=== PATIENT | male | born 1960 | race Caucasian/White ===

== ENCOUNTER 2016-04-23 10:04 | Emergency (ER) | payer MEDICAID ==
[2016-04-23 10:14] VITALS: PULSE 54; TEMP 97.9
[2016-04-23] MEDS ORDERED: NS 1,000 ML IV ONE (10:35)
--- NOTE | 2016-04-23 10:42 | EDPHY ---
H & P Stated Complaint: 2 months bilat abd and groin pain/has abd mesh from hernia surgery Time Seen by Provider: 04/23/16 10:24 HPI/ROS: CHIEF COMPLAINT: Suprapubic and inguinal pain HISTORY OF PRESENT ILLNESS: The patient is a 56-year-old man who comes to the emergency department complaining of bilateral inguinal and suprapubic pain. No testicular pain. Pain does radiate down to his medial thighs. It has been hurting for about 2 months. He states that at 1st he thought he pulled a groin but it is not getting better. He has not had a fever. It is not worsened by palpation. It is worsened by lifting his legs up such as when he walks up the stairs or rides his bicycle. Also when lifting heavy things. He has not noticed any bulges. He has a history of umbilical hernia repair with mesh in 2004. No other abdominal surgeries. Normal bowel movements that are pain free. He states that his urine has turned from a stream to a spray over the last few days. No history of kidney stones or bladder stones. No hematuria. No dysuria. No history of prostate abnormalities. No sexual promiscuity. He states that his pain is only mild but is now constant. REVIEW OF SYSTEMS: Constitutional: denies: chills, fever, recent illness, recent injury EENTM: denies: blurred vision, double vision, nose congestion Respiratory: denies: cough, shortness of breath Cardiac: denies: chest pain, irregular heart rate, lightheadedness, palpitations Gastrointestinal/Abdominal: denies: abdominal pain, diarrhea, nausea, vomiting, blood streaked stools Genitourinary: See HPI Musculoskeletal: denies: joint pain, muscle pain Skin: denies: lesions, rash, jaundice, bruising Neurological: denies: headache, numbness, paresthesia, tingling, dizziness, weakness Hematologic/Lymphatic: denies: blood clots, easy bleeding, easy bruising Immunologic/allergic: denies: HIV/AIDS, transplant EXAM: GENERAL: Well-appearing, well-nourished and in no acute distress. HEAD: Atraumatic, normocephalic. EYES: Pupils equal round and reactive to light, extraocular movements intact, sclera anicteric, conjunctiva are normal. ENT: TMs normal, nares patent, oropharynx clear without exudates. Moist mucous membranes. NECK: Normal range of motion, supple without lymphadenopathy or JVD. LUNGS: Breath sounds clear to auscultation bilaterally and equal. No wheezes rales or rhonchi. HEART: Regular rate and rhythm without murmurs, rubs or gallops. ABDOMEN: Soft, nontender, normoactive bowel sounds. No guarding, no rebound. No masses appreciated. : Normal cremasteric, no palpable hernia and inguinal canals. No tenderness , no swelling, no erythema, prostate exam normal and nontender. No rectal blood or hemorrhoids visible. BACK: No CVA tenderness, no spinal tenderness, step-offs or deformities EXTREMITIES: Normal range of motion, no pitting or edema. No clubbing or cyanosis. NEUROLOGICAL: Cranial nerves II through XII grossly intact. Normal speech, normal gait. 5/5 strength, normal movement in all extremities, normal sensation PSYCH: Normal mood, normal affect. SKIN: Warm, dry, normal turgor, no visible rashes or lesions. Source: Patient Exam Limitations: No limitations - Personal History Current Tetanus/Diphtheria Vaccine: Yes - Medical/Surgical History Hx Asthma: No Hx Chronic Respiratory Disease: No Hx Diabetes: No Hx Cardiac Disease: No Hx Renal Disease: No Hx Cirrhosis: No Hx Alcoholism: No Hx HIV/AIDS: No Hx Splenectomy or Spleen Trauma: No Other PMH: inguinal hernia/spinal fusion - Family History Significant Family History: Hypertension - Social History Smoking Status: Never smoked Alcohol Use: Sober Drug Use: None Constitutional: Initial Vital Signs Temperature (C) 36.6 C 04/23/16 10:10 Heart Rate 54 L 04/23/16 10:10 Respiratory Rate 04/23/16 10:10 Blood Pressure 129/71 H 04/23/16 10:10 O2 Sat (%) 93 04/23/16 10:10 O2 Delivery Mode Room Air Allergies/Adverse Reactions: No Known Allergies Allergy (Verified 04/23/16 10:09) Home Medications: Medication Instructions Recorded ZYPREXA 01/27/09 Triamcinolone 0.1% [Triamcinolone 1 mnotrell TP TID #15 gm 01/05/13 0.1% Cream (RX)] Medical Decision Making - Diagnostics EKG Interpretation: An EKG obtained and was read and documented in trace view. Please see trace view for full reading and report. Sinus bradycardia, no acute ischemic changes. Imaging: Results: CT scan of the abdomen and pelvis was obtained. The results of the study are negative. The study was read by Dr. Twin Naranjo. I viewed the images myself on the PACS system. ED Course/Re-evaluation: 12:50 p.m. we discussed the patient's CT and lab results. He is reassured. He is currently symptom free. We discussed the fact that I do not currently have a explanation for his lower abdominal/inguinal pain. I recommended that he follow up with Urology particularly concerning the change in his urine flow. He understands and agrees with this plan. He declines pain medication prescription and states that he has just been taking Tylenol. We discussed indications for returning to the emergency department. Additional verbal discharge instructions given. Differential Diagnosis: Partial list of the Differential diagnosis considered include but were not limited to; urinary tract infection, hernia, kidney stone, bladder stone, prostatitis and although unlikely based on the history and physical exam, I also considered torsion, diverticulitis, appendicitis, tumor. I discussed these differential diagnoses and the plan with the patient as well as the usual and expected course. The patient understands that the diagnosis is provisional and that in medicine we are not always correct and that further workup is often warranted. Usual and customary warnings were given. All of the patient's questions were answered. The patient was instructed to return to the emergency department should the symptoms at all worsen or return, otherwise to followup with the physician as we discussed. - Data Points Laboratory Results: Laboratory Results 04/23/16 10:45 04/23/16 10:45 04/23/16 04/23/16 12:00 10:45 WBC 4.51 10^3/uL (3.80-9.50) RBC 4.77 10^6/uL (4.40-6.38) Hgb 14.0 g/dL (13.7-17.5) Hct 42.0 % (40.0-51.0) MCV 88.1 fL (81.5-99.8) MCH 29.4 pg (27.9-34.1) MCHC 33.3 g/dL (32.4-36.7) RDW 13.6 % (11.5-15.2) Plt Count 215 10^3/uL (150-400) MPV 10.4 fL (8.7-11.7) Neut % (Auto) 49.9 % (39.3-74.2) Lymph % (Auto) 33.9 % (15.0-45.0) [place] % (Auto) 13.5 H % (4.5-13.0) Eos % (Auto) 1.6 % (0.6-7.6) Baso % (Auto) 0.9 % (0.3-1.7) Nucleat RBC Rel Count 0.0 % (0.0-0.2) Absolute Neuts (auto) 2.25 10^3/uL (1.70-6.50) Absolute Lymphs (auto) 1.53 10^3/uL (1.00-3.00) Absolute Monos (auto) 0.61 10^3/uL (0.30-0.80) Absolute Eos (auto) 0.07 10^3/uL (0.03-0.40) Absolute Basos (auto) 0.04 10^3/uL (0.02-0.10) Absolute Nucleated RBC 0.00 10^3/uL (0-0.01) Immature Gran % 0.2 % (0.0-1.1) Immature Gran # 0.01 10^3/uL (0.00-0.10) Sodium 141 mEq/L (134-144) Potassium 4.7 mEq/L (3.5-5.2) Chloride 106 mEq/L (97-110) Carbon Dioxide 26 mEq/l (22-31) Anion Gap 9 mEq/L (8-16) BUN 13 mg/dL (7-23) Creatinine 0.9 mg/dL (0.7-1.3) Estimated GFR > 60 Glucose 79 mg/dL (70-100) Calcium 9.0 mg/dL (8.5-10.4) Total Bilirubin 0.5 mg/dL (0.1-1.4) Conjugated Bilirubin 0.1 mg/dL (0.0-0.5) Unconjugated Bilirubin 0.4 mg/dL (0.0-1.1) AST 30 IU/L (17-59) ALT 28 IU/L (21-72) Alkaline Phosphatase 81 IU/L (38-126) Total Protein 7.0 g/dL (6.3-8.2) Albumin 3.8 g/dL (3.5-5.0) Lipase 79.0 IU/L (23-300) Urine Color YELLOW Urine Appearance CLEAR Urine pH 5.0 (5.0-7.5) Ur Specific [place] 1.021 (1.002-1.030) Urine Protein NEGATIVE (NEGATIVE) Urine Ketones NEGATIVE (NEGATIVE) Urine Blood NEGATIVE (NEGATIVE) Urine Nitrate NEGATIVE (NEGATIVE) Urine Bilirubin NEGATIVE (NEGATIVE) Urine Urobilinogen NEGATIVE EU (0.2-1.0) Ur Leukocyte Esterase NEGATIVE (NEGATIVE) Ur Culture Indicated? NOT INDICATED (NI) Urine Glucose NEGATIVE (NEGATIVE) Medications Given: Discontinued Medications Sodium Chloride (Ns) 1,000 mls @ 0 mls/hr IV ONCE ONE PRN Reason: Wide Open Stop: 04/23/16 10:36 Last Admin: 04/23/16 10:48 Dose: 1,000 mls Departure - Departure Disposition: Home, Routine, Self-Care Clinical Impression: Abdominal pain Qualifiers: Abdominal location: lower abdomen, unspecified Qualifier Code: (R10.30) Lower abdominal pain, unspecified Condition: Fair Instructions: Abdominal Pain (ED) Referrals: Bobby Thorne MD [Primary Care Provider] - As per Instructions Elizabeth Humphries MD [Medical Doctor] - As per Instructions
--- NOTE | 2016-04-23 10:53 | CPEKG ---
Heart Rate: 45 RR Interval: 1333 P-R Interval: 160 QRSD Interval: 94 QT Interval: 456 QTC Interval: 395 P [place]: 64 QRS [place]: 65 T Wave [place]: 45 EKG Severity - OTHERWISE NORMAL ECG - EKG Impression: SINUS BRADYCARDIA Electronically Signed By: Twin Saldivar 23-Apr-2016 11:04:40
[2016-04-23 11:38] LABS: % IMMATURE GRANULYOCYTES 0.2 % (0.0-1.1); ABSOLUTE IMMATURE GRANULOCYTES 0.01 10^3/uL (0.00-0.10); ADD DIFF? NO; ADD MORPH? NO; ADD SCAN? NO; ATYPICAL LYMPHOCYTE FLAG 0 (0-99); FRAGMENT RBC FLAG 0 (0-99); LEFT SHIFT FLG 0 (0-99); LIPEMIA HEMOLYSIS FLAG 80 (0-99); MEAN CELL HEMOGLOBIN 29.4 pg (27.9-34.1); MEAN CELL HEMOGLOBIN CONCENTR. 33.3 g/dL (32.4-36.7); MEAN CELL VOLUME 88.1 fL (81.5-99.8); MEAN PLATELET VOLUME 10.4 fL (8.7-11.7); PLATELET CLUMPS FLAG 0 (0-99); PLATELET COUNT 215 10^3/uL (150-400); RED BLOOD CELL COUNT 4.77 10^6/uL (4.40-6.38); RED CELL DISTRIBUTION WIDTH 13.6 % (11.5-15.2)
[2016-04-23 11:52] LABS: ALANINE AMINOTRANSFERASE 28 IU/L (21-72); ALBUMIN 3.8 g/dL (3.5-5.0); ALKALINE PHOSPHATASE 81 IU/L (38-126); ANION GAP 9 mEq/L (8-16); ASPARTATE AMINOTRANSFERASE 30 IU/L (17-59); BILIRUBIN,TOTAL 0.5 mg/dL (0.1-1.4); BILIRUBIN-CONJUGATED 0.1 mg/dL (0.0-0.5); BILIRUBIN-UNCONJUGATED 0.4 mg/dL (0.0-1.1); CARBON DIOXIDE 26 mEq/l (22-31); CHLORIDE 106 mEq/L (97-110); CREATININE 0.9 mg/dL (0.7-1.3); GLOMERULAR FILTRATION RATE > 60; GLUCOSE 79 mg/dL (70-100); POTASSIUM 4.7 mEq/L (3.5-5.2); SODIUM 141 mEq/L (134-144)
[2016-04-23] MEDS ORDERED: IOPAMIDOL (ISOVUE-300) 50 ML VIAL IV ONE (12:09)
[2016-04-23 12:11] LABS: COLOR YELLOW; LEUKOCYTE ESTERASE,URINE NEGATIVE (NEGATIVE); NITRITE,URINE NEGATIVE (NEGATIVE)
[2016-04-23 12:55] VITALS: BP 123/92; RESP 18; O2SAT 95
--- NOTE | 2016-04-23 14:04 | CT ---
CT abdomen pelvis with contrast. Clinical indication: Bilateral groin and abdominal pain. Previous inguinal hernia repairs. TECHNIQUE: 1.5 mm contiguous helical axial scanning from the lung bases through the pubic symphysis a fter the uneventful administration of 90 mL of Isovue-300. Routine reconstructions in the coronal and sagittal planes. Dose reduction technique was performed. FINDINGS: There is some patchy atelectatic change at both lung bases. The liver, gallbladder, pancrea s, spleen, adrenals, and kidneys are unremarkable. Incidental cysts are noted in the right kidney. It is benign and needs no further follow up. Small bowel and colon are unremarkable.. There is no inguinal hernia. Mild diverticular disease is present. No inflammatory changes. Degenerat chyna changes of the spine are noted. L5-S1 vacuum disc is present. IMPRESSION: No radiographic evidence to explain the patient's bilateral groin pain. Specifically no e vidence of recurrent hernia or mass in the inguinal regions. Critical results relayed by Dr. Naranjo to Dr. Saldivar 04/23/2016 1247 hours
== END 2016-04-23 13:00 | disposition home or self-care (01) ==
DX: R10.30 Lower abdominal pain, unspecified (principal)
CPT/HCPCS: Q9967

== ENCOUNTER → 2016-09-12 | Outpatient (CLI) | payer MEDICAID | LOC: FIMAGING 11:47 | PROVIDERS: ATTEND Physician Assistant | DX: M50.31 Other cervical disc degeneration, high cervical region (principal); M50.321 Other cervical disc degeneration at C4-C5 level; Z98.1 Arthrodesis status ==

== ENCOUNTER → 2018-04-02 | Outpatient (CLI) | payer OTHER | LOC: FIMAGING 14:42 | PROVIDERS: ATTEND Physician Assistant | DX: M54.2 Cervicalgia (principal); Z98.1 Arthrodesis status ==